=== PATIENT | male | born 1945 | race Caucasian/White ===

== ENCOUNTER 2019-02-25 16:08 | Observation (INO) | payer MEDICARE, BC ==
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
[2019-02-25] MEDS ORDERED: Sodium Chloride 0.9% 10 ML Syringe FLUSH PRN ×2 (17:04→18:00)
[2019-02-25 17:10] LABS: O2 DELIVERY DEVICE NASAL CANNULA
[2019-02-25 17:11] LABS: BASE EXCESS ARTERIAL 1 mmol/L (-2-3); BICARBONATE,ARTERIAL 25.5 mmol/L (22-26); O2 FLOW RATE 2 L/min; O2 SATURATION ARTERIAL 98 % (95-98); PCO2 ARTERIAL 39 mmHG (35-45); PO2 ARTERIAL 109 mmHG (80-105)
[2019-02-25 17:32] LABS: ANION GAP 13.3 mmol/L (5-15)
[2019-02-25] MEDS ORDERED: Aspirin 81 MG Tab.Chew PO ONE (17:35)
[2019-02-25] MEDS ORDERED: Nitroglycerin 2% Oint 1 GM UD Packet TOP ONE (17:35)
[2019-02-25] MEDS ORDERED: Aspirin 81 MG Tab.Chew ONE (17:35)
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
[2019-02-25] MEDS ORDERED: Acetaminophen 325 MG Tab PO PRN (18:00)
[2019-02-25] MEDS: Nitroglycerin 2% Oint 1 GM UD Packet TOP SCH (18:06)
[2019-02-25] MEDS: Clopidogrel 75 MG Tab PO SCH (18:33)
[2019-02-25] MEDS: Enoxaparin 100 MG/1 ML Syringe SUBCUT SCH (18:33)
[2019-02-25] MEDS ORDERED: EPINEPHrine 1:10,000 1 MG/10 ML Syringe IVPUSH PRN (18:36)
[2019-02-25] MEDS ORDERED: Nitroglycerin 0.4 MG Tab.SL SL PRN (18:36)
[2019-02-25] MEDS ORDERED: Lidocaine 2% 100 MG/5 ML Syringe IVPUSH PRN (18:36)
[2019-02-25] MEDS ORDERED: Atropine 0.1 MG/ML 10 ML Syringe IVPUSH PRN (18:36)
[2019-02-25] MEDS ORDERED: atorvaSTATin 10 MG Tab PO ONE (21:00)
[2019-02-26] MEDS: Nitroglycerin 2% Oint 1 GM UD Packet TOP SCH ×2 (00:24→06:43)
[2019-02-26] MEDS: Enoxaparin 100 MG/1 ML Syringe SUBCUT SCH (06:45)
[2019-02-26] MEDS: Clopidogrel 75 MG Tab PO SCH (08:30)
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
== END 2019-02-26 11:45 | disposition home or self-care (01) ==
LOC: KA.ED 16:08 → KA.MS 18:00
PROVIDERS: ADMIT Physician Assistant Medical; ATTEND Family Medicine
DX: T58.8X1A Toxic effect of carbon monoxide from other source, accidental (unintentional), initial encounter (principal); R74.8 Abnormal levels of other serum enzymes; E78.00 Pure hypercholesterolemia, unspecified; X08.8XXA Exposure to other specified smoke, fire and flames, initial encounter; Z79.899 Other long term (current) drug therapy
CPT/HCPCS: 36415; 36600; 71045; 80053; 82550; 82553; 82803; 84484; 85025; 93005; 96372; 99283; 99285; A9270; G0378; J1650